=== PATIENT | male | born 1980 | race Caucasian/White ===

== ENCOUNTER 2018-08-30 06:57 | Emergency (ER) | payer OTHER ==
[2018-08-30 07:06] VITALS: BP 120/81
[2018-08-30] MEDS ORDERED: KETOROLAC 15 MG/1 ML SDV IM ONE (07:27)
[2018-08-30] MEDS ORDERED: LIDOCAINE 4%/MENTHOL 1% PATCH TD ONE (07:27)
--- NOTE | 2018-08-30 07:31 | EDPHY ---
H & P Time Seen by Provider: 08/30/18 07:11 HPI/ROS: CHIEF COMPLAINT: Neck pain and stiffness HISTORY OF PRESENT ILLNESS: 37-year-old gentleman with a history of intermittent mild neck discomfort as well as some chronic low back pain presents reporting that 2 days ago he woke with some stiffness and soreness in his neck. The following night and this morning he woke with more severe pain. Today, upon awakening, he has severe bilateral lower neck pain which increases with movement, lifting his head, or turning his head. The patient had taken Valium with some relief yesterday. He has also taken some ibuprofen. He denies any radicular symptoms, numbness or tingling in the arms or legs. No history of trauma. No history of fevers, constitutional symptoms, nausea, vomiting, or IV drug use. REVIEW OF SYSTEMS: A comprehensive 10 system review of systems was reviewed and is otherwise negative aside from elements mentioned in the history of present illness and medical decision making. PAST MEDICAL HISTORY: Low back pain. SOCIAL HISTORY: Nonsmoker, rare alcohol, no IV drug use. No illicit drug use. Patient did see a physical therapist on for some lower back discomfort. VITAL SIGNS Reviewed by me. GENERAL: Well-developed, well-nourished, pleasant. Sitting upright. Reports pain with movement of the head. HEENT: Atraumatic. Eyes: No icterus, no injection. Mouth: moist mucous membranes. No erythema or lesions. [Neck: No meningismus. Patient can flex and extend without difficulty. Some limitation on rotation to both the right and the left. Most significant impairment is with lateral flexion. No specific midline tenderness to palpation. Tenderness diffusely from the mid to lower cervical spine with significant paraspinous muscle spasm present. LUNGS: Clear to auscultation bilaterally, no wheezes, rhonchi or rales. CARDIAC: Regular rate and rhythm, no rubs, murmurs or gallops. ABDOMEN: Benign exam. BACK: No CVA tenderness. No significant lumbar spine tenderness. EXTREMITIES: No trauma. No edema. Range of motion is normal throughout. NEURO: Alert and oriented, motor strength 5/5 in all major muscle groups. Sensation intact throughout the upper extremities in all dermatomes. SKIN: Warm and dry, no rash. PSYCHIATRIC: Normal mentation, no agitation. Smoking Status: Never smoked Constitutional: Initial Vital Signs Temperature (C) 36.8 C 08/30/18 07:03 Heart Rate 66 08/30/18 07:03 Respiratory Rate 16 08/30/18 07:03 Blood Pressure 120/81 H 08/30/18 07:03 O2 Sat (%) 99 08/30/18 07:03 O2 Delivery Mode Room Air Allergies/Adverse Reactions: No Known Allergies Allergy (Verified 08/28/15 15:25) Home Medications: Medication Instructions Recorded Cyclobenzaprine [Flexeril 10 MG 10 mg PO TID PRN #20 tab 08/30/18 (RX)] Hydrocodone/APAP 5/325 [[place] 1 tab PO Q6H PRN #10 tab 08/30/18 5/325 (RX)] Ibuprofen 08/30/18 Valium 5 MG (*) 08/30/18 methylPREDNISolone [Medrol Dose 4 mg PO DAILY #1 each 08/30/18 [place]] Medical Decision Making ED Course/Re-evaluation: 37-year-old male with atraumatic neck pain and spasm. I do not believe the patient needs any imaging studies. He is in agreement. He was given Toradol 30 mg IM. Was given a prescription for Medrol Dosepak, Flexeril, and [place]. Please see the discharge instructions. Discussed reasons to return to the emergency department and concerning symptoms. Differential Diagnosis: After history was obtained and physical exam performed, the differential for this patient's neck pain pain was considered including but not limited to muscular pain, herniated disc, spine fracture, infectious causes, diskitis, epidural abscess. - Data Points Medications Given: Discontinued Medications Ketorolac Tromethamine (Toradol) 30 mg IM EDNOW ONE Stop: 08/30/18 07:28 Last Admin: 08/30/18 07:41 Dose: 30 mg Miscellaneous Medication (Icy Hot Lidocaine/Menthol 4%/1% Patch) 1 patch TD EDNOW ONE Stop: 08/30/18 07:28 Last Admin: 08/30/18 07:40 Dose: 1 patch Departure - Departure Disposition: Home, Routine, Self-Care Clinical Impression: Neck pain Condition: Good Instructions: Cervical Strain (ED), Acute Neck Pain (ED) Additional Instructions: Musculoskeletal pain is often treated with anti-inflammatories, muscle relaxants, and pain medications. 1. I recommend Ibuprofen (Motrin, Advil) or Naproxen Sodium (Aleve) for pain and anti-inflammatory effects. You may take either one, but do not take both. Your dose is: Ibuprofen 600 mg every 6-8 hours with food. OR Naproxen Sodium (Aleve) 220 mg every 12 hours. You have also been given a prescription for a Medrol Dosepak to use as directed to treat inflammation. Please begin taking this as soon as possible. 2. For muscle relaxation, you been given a prescription of Flexeril. Please take this as directed. It may make you sleepy. The Valium which you have at home is also a muscle relaxant. You may use either Flexeril or valium but do not use both. 3. For pain relief, I suggest high-dose Tylenol (650mg-1000mg of Tylenol) up to 3 times a day. Not exceed 3000 mg in a 24 hour period. You may also try lidocaine patches for pain relief. 4% lidocaine patches are available [id number]. Lastly, you been given a prescription for hydrocodone to use if needed for more severe pain. Apply ice for 20-30 minutes every 2-3 hours for the next 48 hours. After 48 hours, a heating pad or hot tub may feel better. Please follow up with your primary care physician if you're not improving as expected in the next several days. Consider physical therapy or chiropractic followup for persistent discomfort. Return to the emergency department if you experience significantly worsening pain, pain radiating into the legs, weakness, numbness or tingling, difficulties with bowel or bladder, fever, nausea, vomiting, or other concerns. Referrals: SHAVON LARA [Primary Care Provider] - As per Instructions Prescriptions: Cyclobenzaprine [Flexeril 10 MG (RX)] 10 mg PO TID PRN #20 tab PRN Reason: Muscle Spasms Hydrocodone/APAP 5/325 [[place] 5/325 (RX)] 1 tab PO Q6H PRN #10 tab PRN Reason: Pain methylPREDNISolone [Medrol Dose [place]] 4 mg PO DAILY #1 each
[2018-08-30] MEDS ORDERED: PATCH REMOVAL 1 EA PATCH TD SCH (21:00)
== END 2018-08-30 07:49 | disposition home or self-care (01) ==
DX: M54.2 Cervicalgia (principal); M54.5 Low back pain; G89.29 Other chronic pain
CPT/HCPCS: J1885